=== PATIENT | male | born 1980 | race Hispanic/Latino ===

== ENCOUNTER 2020-05-21 11:38 | Inpatient (IN) | payer MEDICARE ==
[2020-05-21] VITALS (13 sets, daily range): BP systolic 100–150; BP diastolic 36–81
[2020-05-21 12:32] LABS: BASOPHILS % (AUTO) 0.7 % (0.0-5.0); EOSINOPHILS % (AUTO) 2.6 % (0.0-8.0); HEMATOCRIT 38.2 % (42-54); LYMPHOCYTES % (AUTO) 21.5 % (21.0-51.0); MEAN CORPUSCULAR HEMOGLOBIN 27.5 pg (27.0-33.0); MEAN CORPUSCULAR HGB CONC 32.7 g/dL (32.0-36.0); MEAN CORPUSCULAR VOLUME 84.1 fL (79-99); MONOCYTES % (AUTO) 5.4 % (3.0-13.0); NEUTROPHILS % (AUTO) 69.4 % (40.0-77.0); PLATELET COUNT (AUTO) 259 K/uL (130-400); RED BLOOD CELL COUNT(AUTO) 4.54 MIL/uL (4.50-6.20); RED CELL DISTRIBUTION WIDTH 13.1 % (11.0-15.5); WHITE BLOOD COUNT (AUTO) 11.7 K/uL (4.8-10.8)
[2020-05-21 12:43] LABS: CREATININE 1.2 mg/dL (0.5-1.5); POTASSIUM 3.8 mmol/L (3.5-5.1)
[2020-05-21 12:48] LABS: ALBUMIN 3.4 g/dL (3.5-5.0); BILIRUBIN,TOTAL 0.4 mg/dL (0.2-1.0); CRP QUANTITATIVE 32.5 mg/L (0.00-9.0); TOTAL PROTEIN, SERUM 8.3 g/dL (6.0-8.3)
[2020-05-21 12:50] LABS: INR 0.96 (0.85-1.15); PROTHROMBIN TIME 10.5 SEC (9.6-11.6)
[2020-05-21 12:51] LABS: PARTIAL THROMBOPLASTIN TIME 26.5 SEC (26.3-35.5)
[2020-05-21] MEDS ORDERED: ONDANSETRON 4MG INJ ONE (13:02)
[2020-05-21] MEDS ORDERED: ZOSYN 3.375GM+NS 50ML 50 ML IV ONE (13:02)
[2020-05-21] MEDS ORDERED: 0.9%NACL 1000ML 1,000 ML IV ONE (13:03)
[2020-05-21] MEDS ORDERED: ACETAMINOPHEN 500 MG TABLET ONE (13:04)
[2020-05-21] MEDS ORDERED: ONDANSETRON 4MG INJ IV PRN (13:30)
[2020-05-21] MEDS ORDERED: LACTULOSE 20 GM/30 ML UDCUP PO PRN (13:30)
[2020-05-21] MEDS ORDERED: ACETAMINOPHEN 325 MG TAB PO PRN ×2 (13:30)
[2020-05-21] MEDS ORDERED: GADODIAMIDE 10 MMOL/20 ML VIAL IV ONE (13:39)
[2020-05-21] MEDS ORDERED: MORPHINE 4 MG SYG ONE (13:49)
[2020-05-21] MEDS ORDERED: VANCOMYCIN 1G/250ML KIT 250 ML IV ONE (14:05)
[2020-05-21 14:40] LABS: APPEARANCE,URINE Clear (CLEAR); BILIRUBIN,URINE Negative (NEGATIVE); COLOR,URINE Yellow (YELLOW); GLUCOSE, URINE (UA) Negative (NEGATIVE); KETONES,URINE Negative (NEGATIVE); LEUKOCYTE ESTERASE ,URINE Negative (NEGATIVE); NITRATE,URINE Negative (NEGATIVE); OCCULT BLOOD,URINE Negative (NEGATIVE); PH,URINE 6.5 (5.0-8.0); PROTEIN,URINE Negative (NEGATIVE); UROBILINOGEN,URINE 0.2 mg/dL (0.2-1.0)
[2020-05-21] MEDS: INSULIN HUMULIN R 100 UNIT/ML 3ML SQ SCH ×2 (16:30→21:00)
[2020-05-21] MEDS ORDERED: PANT40TA PO (16:36)
[2020-05-21] MEDS: MORPHINE 2 MG SYG IV PRN ×2 (16:54→23:41)
[2020-05-21] MEDS ORDERED: PROPOFOL 1000 MG/100 ML 100 ML IV ONE (18:34)
[2020-05-21] MEDS ORDERED: MIDAZOLAM HCL 1 MG/ML 2ML VIAL ONE (18:37)
[2020-05-21] MEDS ORDERED: LIDOCAINE HCL 1% 20 ML VIAL ONE (18:39)
[2020-05-21] MEDS ORDERED: BUPIVACAINE/PF 0.5% 10ML VIAL ONE (18:39)
[2020-05-21] MEDS ORDERED: EPHEDRINE SULFATE 50 MG/ML AMPULE ONE (19:32)
[2020-05-21] MEDS ORDERED: MEPERIDINE-PF 25 MG/ML SYG ONE (19:35)
[2020-05-21] MEDS: ZOSYN 3.375GM+NS 50ML 50 ML IV SCH (21:39)
[2020-05-21] MEDS: FAMOTIDINE 20MG TAB PO SCH (21:39)
[2020-05-22 03:49] VITALS: BP 130/69
[2020-05-22] MEDS: ZOSYN 3.375GM+NS 50ML 50 ML IV SCH ×3 (05:12→21:01)
[2020-05-22 05:47] LABS: BASOPHILS % (AUTO) 0.5 % (0.0-5.0); EOSINOPHILS % (AUTO) 2.5 % (0.0-8.0); HEMATOCRIT 36.3 % (42-54); LYMPHOCYTES % (AUTO) 15.5 % (21.0-51.0); MEAN CORPUSCULAR HEMOGLOBIN 27.5 pg (27.0-33.0); MEAN CORPUSCULAR HGB CONC 32.8 g/dL (32.0-36.0); MEAN CORPUSCULAR VOLUME 83.8 fL (79-99); MONOCYTES % (AUTO) 4.5 % (3.0-13.0); NEUTROPHILS % (AUTO) 76.5 % (40.0-77.0); PLATELET COUNT (AUTO) 244 K/uL (130-400); RED BLOOD CELL COUNT(AUTO) 4.33 MIL/uL (4.50-6.20); RED CELL DISTRIBUTION WIDTH 12.9 % (11.0-15.5); WHITE BLOOD COUNT (AUTO) 12.9 K/uL (4.8-10.8)
[2020-05-22 05:55] LABS: CREATININE 1.2 mg/dL (0.5-1.5); POTASSIUM 3.3 mmol/L (3.5-5.1)
[2020-05-22] MEDS ORDERED: POTASSIUM CHLORIDE 10% ELIXIR 20 MEQ/15 ML UDCUP PO PRN (06:30)
[2020-05-22] MEDS ORDERED: LIDOCAINE HCL-MPF 1% 2ML VIAL IV PRN (06:30)
[2020-05-22] MEDS ORDERED: POTASSIUM CHLORIDE 10MEQ/100ML 100 ML IV PRN (06:30)
[2020-05-22] MEDS: INSULIN HUMULIN R 100 UNIT/ML 3ML SQ SCH ×4 (07:30→21:00)
[2020-05-22] MEDS ORDERED: MAG/ALUM/SIMETH 30 ML UDCUP PO PRN (08:00)
[2020-05-22] MEDS: ENOXAPARIN SODIUM 40 MG/0.4 ML SYRINGE SQ SCH (08:27)
[2020-05-22] MEDS: KCL 20 MEQ ERTAB PO PRN ×2 (08:28→21:01)
[2020-05-22] MEDS: METOCLOPRAMIDE 10 MG TABLET PO SCH ×3 (08:28→16:49)
[2020-05-22] MEDS: FAMOTIDINE 20MG TAB PO SCH (08:28)
[2020-05-22] MEDS: MORPHINE 2 MG SYG IV PRN ×2 (08:38→21:47)
[2020-05-22 09:18] VITALS: BP 145/71
[2020-05-22 12:56] VITALS: BP 137/67
[2020-05-22] MEDS ORDERED: ALPRAZOLAM 1 MG TAB PO SCH (14:00)
[2020-05-22 16:37] VITALS: BP 132/63
[2020-05-22] MEDS: DIPH,PERTUSS(ACELL),TET VAC/PF 0.5 ML VIAL IM SCH (16:50)
[2020-05-22 20:14] VITALS: BP 126/70
[2020-05-23 00:22] VITALS: BP 117/45
[2020-05-23 04:40] VITALS: BP 99/58
[2020-05-23] MEDS: ZOSYN 3.375GM+NS 50ML 50 ML IV SCH ×2 (04:42→11:51)
[2020-05-23] MEDS: MORPHINE 2 MG SYG IV PRN (04:50)
[2020-05-23 05:13] LABS: BASOPHILS % (AUTO) 0.5 % (0.0-5.0); EOSINOPHILS % (AUTO) 1.7 % (0.0-8.0); HEMATOCRIT 32.6 % (42-54); MEAN CORPUSCULAR HEMOGLOBIN 26.7 pg (27.0-33.0); MEAN CORPUSCULAR HGB CONC 31.6 g/dL (32.0-36.0); MEAN CORPUSCULAR VOLUME 84.5 fL (79-99); NEUTROPHILS % (AUTO) 64.4 % (40.0-77.0); PLATELET COUNT (AUTO) 220 K/uL (130-400); RED BLOOD CELL COUNT(AUTO) 3.86 MIL/uL (4.50-6.20); WHITE BLOOD COUNT (AUTO) 9.8 K/uL (4.8-10.8)
[2020-05-23 05:26] LABS: CREATININE 1.2 mg/dL (0.5-1.5); POTASSIUM 3.6 mmol/L (3.5-5.1)
[2020-05-23] MEDS: INSULIN HUMULIN R 100 UNIT/ML 3ML SQ SCH ×2 (06:10→11:30)
[2020-05-23 07:51] VITALS: BP 112/52
[2020-05-23] MEDS: DIPH,PERTUSS(ACELL),TET VAC/PF 0.5 ML VIAL IM SCH (07:54)
[2020-05-23] MEDS: METOCLOPRAMIDE 10 MG TABLET PO SCH ×2 (08:50→11:51)
[2020-05-23] MEDS: ENOXAPARIN SODIUM 40 MG/0.4 ML SYRINGE SQ SCH ×2 (08:51→08:57)
[2020-05-23] MEDS ORDERED: PANTOPRAZOLE 40 MG TAB DR PO SCH (09:00)
[2020-05-23] MEDS ORDERED: ALPRAZOLAM 0.5 MG TABLET PO SCH (09:00)
[2020-05-23 11:25] VITALS: BP 134/72
== END 2020-05-23 15:49 | disposition home or self-care (01) | DRG 240 ==
LOC: EDH 11:38 → EDHIP 13:18 → 3AH 16:24
PROVIDERS: ADMIT Internal Medicine; ATTEND Internal Medicine
PROC: 0Y6M0ZC Detachment at Right Foot, Partial 3rd Ray, Open Approach (ICD-10-PCS; principal; 2020-05-21 19:11)
DX: E11.52 Type 2 diabetes mellitus with diabetic peripheral angiopathy with gangrene (principal); M86.671 Other chronic osteomyelitis, right ankle and foot; L03.115 Cellulitis of right lower limb; E11.621 Type 2 diabetes mellitus with foot ulcer; L03.031 Cellulitis of right toe; E11.42 Type 2 diabetes mellitus with diabetic polyneuropathy; K31.84 Gastroparesis; E11.43 Type 2 diabetes mellitus with diabetic autonomic (poly)neuropathy; F41.9 Anxiety disorder, unspecified; L97.519 Non-pressure chronic ulcer of other part of right foot with unspecified severity; E66.9 Obesity, unspecified; I10 Essential (primary) hypertension; Z83.3 Family history of diabetes mellitus; Z89.439 Acquired absence of unspecified foot; Z90.49 Acquired absence of other specified parts of digestive tract; E11.69 Type 2 diabetes mellitus with other specified complication; Z20.822 Contact with and (suspected) exposure to COVID-19
CPT/HCPCS: 36415; 71045; 73630; 73720; 80048; 80053; 81003; 82550; 82948; 83605; 84484; 85025; 85610; 85730; 86140; 87040; 87070; 87076; 87205; 87426; 88305; 88307; 88311; 88312; 90715; 93005; 99291; A9579; G0378; J1650; J2175; J2250; J2270; J2405; J2543; J2704; J3370; J3490; J7030; U0003